=== PATIENT | male | born 1965 | race African-American/Black ===

== ENCOUNTER → 2017-04-09 | Outpatient (CLI) | payer BC, OTHER ==
[~2017-04-09] MED LIST: AUGMENTIN 875-1 EACH PO; BAYER BACK & B1 EACH PO; CIALIS5 MG PO; CLEOCIN HCL300 MG PO; COUMADIN 2 MG TA2 M1 PO; COUMADIN 5 MG TA5 M1; COUMADIN 5 MG TA5 M1 PO; DULCOLAX STOOL100 MG PO; FLONASE 0.05%50 MCG NASAL; HYDROCODON-ACE1 EAC7 PO; HYDROCODONE-AP1 EAC6 PO; IBUPROFEN 200200 M1; IBUPROFEN 200200 M1 PO; LIPITOR 20 MG T20 M1 PO; MOBIC15 MG PO; NAPROSYN500 MG PO; NORCO 5-325 TA1 EACH PO; OXYCODONE-ACET1 EAC2; PERCOCET 10-321 EACH PO; PERCOCET 5-3251 EACH PO
== END ==
LOC: CAT 04-08 12:52
DX: L03.221 Cellulitis of neck (principal)

== ENCOUNTER 2017-05-23 10:49 | Inpatient (IN) | payer BC, OTHER ==
[~2017-05-23] VITALS: Ht 182.9 cm; Wt 93.9 kg
[2017-05-23] VITALS (7 sets, daily range): BP systolic 116–187; BP diastolic 75–107
--- NOTE | ~2017-05-23 | H ---
[facility] [place] [address] HISTORY AND PHYSICAL Name: ARIANNE CALVILLO Room #: 453-P [facility] Mary Vail#: [id number] Admission: 05/23/17 Attend Phys: Elizabeth Batista MD Discharge: Date of : 65 Report #: [id number] THIS REPORT FOR: //name// CC: Elizabeth Batista Shelly Morrisbetina DATE OF SERVICE: 05/23/2017 REASON FOR PRESENTATION: Right-sided numbness. HISTORY OF PRESENT ILLNESS: This is a 52-year-old with past medical history of hypertension. He is also known to be an ex-smoker. He quit smoking 2 months ago. He is maintained on lisinopril and metoprolol. No known other risk factors for peripheral arterial disease, specifically no coronary artery disease and no carotid artery disease. He presented complaining of right-sided tingling that started since Wednesday. He reports that the right side of his upper extremity along with lower extremity has started to be numb on Wednesday. This did not go away. This morning he started to have some facial numbness, especially on the right lip, just like getting a shot for a dental procedure. No facial drooping. No diplopia, no double vision, no dizziness, no headache. He tells me that his blood pressure is under well control. No neck pain. No neck rigidity. No previous similar episodes. No history of head trauma. 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 He is not aware of any family history of hypercoagulable status. No family history of stroke, but his mom had a CABG surgery.He recently had a dental procedure and was given augmentin, he does not think that his lips numbness is related to that PAST MEDICAL HISTORY: 1. Hypertension. 2. Hyperlipidemia. PAST SURGICAL HISTORY: 1. Umbilical hernia repair. 2. Right hip replacement. ALLERGIES: No known drug allergies. MEDICATIONS: 1. Lisinopril 5 mg daily. 2. Metoprolol. 3. Famotidine. 4. Meclizine. 5. Atorvastatin. SOCIAL HISTORY: He quit smoking 2 months ago. 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 No drug or alcohol abuse. [facility] [address] [place] [address] HISTORY AND PHYSICAL Name: ARIANNE CALVILLO Room #: 453-P [facility] MYara#: [id number] Admission: 05/23/17 Attend Phys: Elizabeth Batista MD Discharge: Date of : 65 Report #: [id number] FAMILY HISTORY: His mom had CABG bypass surgery. REVIEW OF SYSTEMS: GENERAL: No fever or chills. CARDIOVASCULAR: No chest pain or palpitation. PULMONARY: No cough or hemoptysis. GASTROINTESTINAL: No nausea or vomiting. GENITOURINARY: No frequency, no urgency. MUSCULOSKELETAL: No back pain. No myalgia, no joint pain. NEUROLOGICAL: As per the history of present illness. PHYSICAL EXAMINATION: VITAL SIGNS: Temperature was 36.9, pulse was 61, blood pressure was 186/94. Respiratory rate was 17. HEAD AND NECK: No jugular venous distention, no bruit, no thyromegaly. CHEST: Clear to auscultation bilaterally. CARDIOVASCULAR: Regular with no rub detected. ABDOMEN: Soft, nontender, with no hepatosplenomegaly. EXTREMITIES: Lower extremities, no edema with intact peripheral pulses. NEUROLOGIC: Completely normal physical examination with symmetrical power and sensation, symmetrical reflexes. Intact cranial nerves. LABORATORY DATA: Laboratory values reviewed. All of his laboratory values are within normal, except that he had a blood sugar of 125. IMAGING DATA: His imaging including his CT reviewed. ASSESSMENT, IMPRESSION AND PLAN: Right-sided numbness. Hypertension. His symptoms are atypical for stroke; however, given his hypertensive urgency and high blood pressure on presentation, we will admit for observation. CT is negative for any acute neurological abnormalities. Stroke workup including lipid profile, MRI, [facility] of [facility] in the morning. Check TSH. Check folic acid and B12. Neurological consultation. [address] [address] HISTORY AND PHYSICAL Name: ARIANNE CALVILLO Room #: [address] [place] [address] M.R.#: [id number] Admission: 05/23/17 Attend Phys: Elizabeth Batista MD Discharge: Date of : 65 Report #: [id number] Blood pressure control. Check lipid profile in the morning. Further plans will be based on the MRI results. <ELECTRONICALLY SIGNED> By: Elizabeth Batista MD 05/24/17 0806 [id number] 1323 Elizabeth Batista MD /nt
--- NOTE | ~2017-05-23 | EKG ---
[place] [address] [place] [facility] [place] [address] ELECTROCARDIOGRAM REPORT Name: ARIANNE CALVILLO Room #: 453-P [facility] M.R.#: [id number] Admission: 05/23/17 Attend Phys: Elizabeth Batista MD Discharge: Date of : 65 Report #: [id number] THIS REPORT FOR: //name// [facility] ED Test Date: 2017-05-23 Test Time: 11:19:56 Pat Name: ARIANNE CALVILLO Department: Room: 453 Gender: M Addictions Counselor Assistant: JUMA : 1965 Requested By: Yanely Celestin Order Number: [id number] MD: Alessandro Chris Measurements Intervals [place] Rate: 55 P: 67 AL: 171 QRS: 62 QRSD: 82 T: 16 QT: 412 QTc: 394 Interpretive Statements Sinus rhythm Consider left ventricular hypertrophy Poor septal R-wave progression No previous ECG available for comparison Electronically Signed On 05-23-2017 13:39:11 CDT by Alessandro Chris [email or web address] <ELECTRONICALLY SIGNED> By: Alessandro Chris MD, [facility] 05/23/17 1339 1119 18 Alessandro Chris MD, FACC /EPI
--- NOTE | ~2017-05-23 | 2DMMODE ---
[facility] [address] [place] [address] 2 D/M-MODE ECHOCARDIOGRAM Name: ARIANNE CALVILLO Room #: 453-P ADM IN M.R.#: [id number] Admission: 05/23/17 Attend Phys: Elizabeth Batista, Discharge: Date of : 65 Date of Service: 05/24/17 1228 Report #: [id number] THIS REPORT FOR: //name// APPROVED REPORT Study performed: 05/24/2017 11:31:13 EXAM: Comprehensive 2D, Doppler, and color-flow Echocardiogram Patient Location: Echo lab Room #: [facility] Status: routine BSA: 2.16 HR: 48 bpm BP: 147/84 mmHg Rhythm: Bradycardia Other Information Study Quality: Good Indications CVA. Hx: HTN, HLP, tobacco abuse Echo Enhancing Agent Indication: Rule out Shunt Agent(s) / Amount(s) Used: Agitated Saline 6 cc 2D Dimensions RVDd: 38.32 mm LVEF(%): 58.64 (>50%) IVSd: 12.79 (7-11mm) LVOT Diam: 20.57 (18-24mm) LVDd: 50.79 mm PWd: 12.12 (7-11mm) Ascending Ao: 32.82 (22-36mm) LVDs: 34.96 (25-40mm) Aortic Root: 31.59 mm Reyes's LVEF: 58.64 % Volumes Left Atrial Volume (Systole) Single Plane 4CH: 53.25 mL Single Plane 2CH: 68.80 mL LA ESV Index: 32.00 mL/m2 Aortic Valve AoV Peak Romario.: 1.73 m/s AO Peak Gr.: 11.99 mmHg LVOT Max P.92 mmHg LVOT Max V: 1.41 m/s GIANA Vmax: 2.70 cm2 [facility] [employer] [place] [address] 2 D/M-MODE ECHOCARDIOGRAM Name: ARIANNE CALVILLO Room #: 453-P [facility] IN M.R.#: [id number] Admission: 05/23/17 Attend Phys: Elizabeth Batista, Discharge: Date of : 65 Date of Service: 05/24/17 1228 Report #: [id number] Mitral Valve E/A Ratio: 0.8 MV Decel. Time: 235.27 ms MV E Max Romario.: 0.59 m/s MV A Romario.: 0.72 m/s MV PHT: 68.23 ms IVRT: 129.18 ms Pulmonary Valve PV Peak Romario.: 0.95 m/s PV Peak Gr.: 3.61 mmHg Pulmonary Vein P Vein S: 0.52 m/s P Vein A: 0.25 m/s P Vein D: 0.40 m/s P Vein A Dur.: 96.9 msec P Vein S/D Ratio: 1.30 Tricuspid Valve TR Peak Romario.: 1.95 m/s RAP Estimate: 5.00 mmHg TR Peak Gr.: 15.14 mmHg PA Pressure: 20.00 mmHg Left Ventricle The left ventricle is normal size. There is normal LV segmental wall motion. Mild concentric left ventricular hypertrophy. Left ventricular systolic function is normal. LVEF is 55-60%. Mild diastolic dysfunction is present (impaired relaxation pattern). Right Ventricle The right ventricle is normal size. The right ventricular systolic function is normal. Atria The left atrium size is normal. Injection of bubbles documented no interatrial shunt. The right atrium size is normal. Aortic Valve Aortic valve is mildly calcified. No aortic regurgitation is present. There is no aortic valvular stenosis. Mitral Valve The mitral valve is normal in structure. Trace mitral regurgitation. No evidence of mitral valve stenosis. Tricuspid Valve [address] [address] 2 D/M-MODE ECHOCARDIOGRAM Name: ARIANNE CALVILLO Room #: 453-P ADM IN ..#: [id number] Admission: 05/23/17 Attend Phys: Elizabeth Batista, Discharge: Date of : 65 Date of Service: 05/24/17 1228 Report #: [id number] The tricuspid valve is normal in structure. Trace tricuspid regurgitation. Estimated PAP is 20mmHg. Pulmonic Valve The pulmonary valve is normal in structure. Trace pulmonic regurgitation. Great Vessels The aortic root is normal in size. The ascending aorta is normal in size. IVC is normal in size and collapses >50% with inspiration. Pericardium There is no pericardial effusion. <Conclusion> The left ventricle is normal size. LVEF is 55-60%. The right ventricle is normal size. Aortic valve is mildly calcified. The mitral valve is normal in structure. Trace mitral regurgitation. The tricuspid valve is normal in structure. Trace tricuspid regurgitation. Estimated PAP is 20mmHg. The pulmonary valve is normal in structure. Trace pulmonic regurgitation. There is no pericardial effusion. Injection of bubbles documented no interatrial shunt. <ELECTRONICALLY SIGNED> By: Demetrio Ferrell MD 05/24/17 1228 27 27 Demetrio Ferrell MD /INF
[2017-05-23 11:21] LABS: ABSOLUTE NEUTROPHILS 2.6 thou/uL (1.4-8.2); EOSINOPHILS 3.2 % (0.0-3.0); HEMATOCRIT 45.6 % (42.0-52.0); HEMOGLOBIN 15.9 gm/dL (14.0-18.0); MCH 29.3 pg (26.0-34.0); MCHC 34.9 g/dL (28.0-37.0); PLATELET COUNT 168 thou/uL (150-400); POLYS 48.8 % (36.0-66.0); RBC 5.43 mil/uL (4.50-6.00); RDW 14.4 % (10.5-14.5); WBC 5.3 thou/uL (4.0-11.0)
[2017-05-23 11:24] LABS: MANUAL DIFF NO
[2017-05-23 11:28] LABS: ANION GAP 3 mmol/L (7-16); BUN 17 mg/dL (7-18); CALCIUM 9.1 mg/dL (8.5-10.1); CHLORIDE 106 mmol/L (98-107); CO2 29 mmol/L (21-32); CREATININE 1.2 mg/dL (0.7-1.3); GLUCOSE 125 mg/dL (74-106); POTASSIUM 3.8 mmol/L (3.5-5.1); SODIUM 138 mmol/L (136-145)
[2017-05-23 11:37] LABS: TROPONIN-I < 0.04 ng/mL (<0.04-0.07)
[2017-05-23] MEDS ORDERED: LASIX 20 MG TAB20 MG PO (11:48)
[2017-05-23] MEDS ORDERED: LISINOPRIL5 MG PO (11:49)
[2017-05-23] MEDS ORDERED: TIMOLOL GL0.5 %/5 M1 INTRAOCULR (11:49)
[2017-05-23] MEDS ORDERED: TESSALON PERLE100 MG PO (11:49)
[2017-05-23] MEDS ORDERED: ZOLOFT25 MG PO (11:49)
[2017-05-23] MEDS ORDERED: XALATAN2.5 ML OPHTHALMIC (11:49)
[2017-05-23] MEDS ORDERED: LOPRESSOR50 PO (11:49)
[2017-05-23] MEDS ORDERED: DULCOLAX5 MG PO (11:50)
[2017-05-23] MEDS ORDERED: PEPCID20 MG PO (11:50)
[2017-05-23] MEDS ORDERED: ANTIVERT25 MG PO (11:50)
[2017-05-23] MEDS ORDERED: TYLENOL325 MG PO (11:50)
[2017-05-23] MEDS ORDERED: NAPROSYN500 M1 PO (11:52)
[2017-05-23] MEDS ORDERED: LISINOPRIL-HCT1 EAC1 PO (14:40)
[2017-05-23] MEDS ORDERED: AMOXICILLIN 50500 MG PO (14:42)
[2017-05-24 04:19] VITALS: BP 146/91
[2017-05-24 06:36] LABS: HEMATOCRIT 44.3 % (42.0-52.0); HEMOGLOBIN 14.8 gm/dL (14.0-18.0); MCH 28.6 pg (26.0-34.0); MCHC 33.5 g/dL (28.0-37.0); MCV 85.4 fL (80.0-100.0); RBC 5.19 mil/uL (4.50-6.00); RDW 14.6 % (10.5-14.5); WBC 5.1 thou/uL (4.0-11.0)
[2017-05-24 06:48] LABS: ALBUMIN 3.1 g/dL (3.4-5.0); ALKALINE PHOSPHATASE 79 U/L (46-116); ANION GAP 9 mmol/L (7-16); BUN 14 mg/dL (7-18); CALCIUM 8.4 mg/dL (8.5-10.1); CHLORIDE 103 mmol/L (98-107); CHOLESTEROL 279 mg/dL (<200); CO2 25 mmol/L (21-32); CREATININE 1.1 mg/dL (0.7-1.3); GLUCOSE 132 mg/dL (74-106); HDL CHOLESTEROL 26 mg/dL (>40); POTASSIUM 3.4 mmol/L (3.5-5.1); SGOT 11 U/L (15-37); SGPT 17 U/L (30-65); SODIUM 137 mmol/L (136-145); TC:HDL 10.7 Ratio (Not establshd); TOTAL BILIRUBIN 0.2 mg/dL (<0.1-1.0); TOTAL PROTEIN 6.6 g/dL (6.4-8.2); TRIGLYCERIDE 529 mg/dL (<150); VLDL 106 mg/dL (<40)
[2017-05-24 07:06] LABS: FOLIC ACID 12.3 ng/mL (8.6-58.9); TSH 0.974 uIU/mL (0.358-3.740)
[2017-05-24 07:14] VITALS: BP 147/84
[2017-05-24 16:30] VITALS: BP 139/71
[2017-05-24] MEDS ORDERED: ADULT LOW DOSE81 MG PO (18:37)
[2017-05-24] MEDS ORDERED: PRINIVIL20 MG PO (18:37)
[2017-05-24] MEDS ORDERED: LIPITOR 20 MG T20 M1 PO (18:37)
[2017-05-24 18:41] VITALS: BP 139/71
[2017-05-24 19:00] VITALS: BP 139/71
[2017-05-25 05:11] LABS: GLYCOHEMOGLOBIN (HGB A1C) 5.7 % (4.8-5.6)
== END 2017-05-24 19:01 | disposition home or self-care (01) | DRG 66 ==
LOC: ER 10:49 → EROBS 12:16 → 4W 12:16
PROVIDERS: Emergency Medicine; Hospitalist; Internal Medicine
DX: I63.9 Cerebral infarction, unspecified (principal); I10 Essential (primary) hypertension; E78.5 Hyperlipidemia, unspecified; Z96.641 Presence of right artificial hip joint; I16.0 Hypertensive urgency; Z79.899 Other long term (current) drug therapy; Z79.82 Long term (current) use of aspirin; Z83.3 Family history of diabetes mellitus; Z87.891 Personal history of nicotine dependence

== ENCOUNTER 2017-07-05 12:56 | Observation (INO) | payer BC, OTHER ==
[~2017-07-05] VITALS: Ht 182.9 cm; Wt 97.1 kg
[~2017-07-05 12:56] MED LIST changes: +ADULT LOW DOSE81 MG PO; +AMOXICILLIN 50500 MG PO; +ANTIVERT25 MG PO; +DULCOLAX5 MG PO; +LASIX 20 MG TAB20 MG PO; +LISINOPRIL-HCT1 EAC1 PO; +LISINOPRIL5 MG PO; +LOPRESSOR50 PO; +NAPROSYN500 M1 PO; +PEPCID20 MG PO; +PRINIVIL20 MG PO; +TESSALON PERLE100 MG PO; +TIMOLOL GL0.5 %/5 M1 INTRAOCULR; +TYLENOL325 MG PO; +XALATAN2.5 ML OPHTHALMIC; +ZOLOFT25 MG PO
[2017-07-05 13:03] VITALS: BP 171/111
[2017-07-05] MEDS ORDERED: ZETIA10 MG PO (15:15)
[2017-07-05 15:16] VITALS: BP 158/94
[2017-07-05 15:23] LABS: HEMATOCRIT 47.6 % (42.0-52.0); MCH 28.5 pg (26.0-34.0); MCHC 33.7 g/dL (28.0-37.0); MCV 84.5 fL (80.0-100.0); PLATELET COUNT 138 thou/uL (150-400); RBC 5.63 mil/uL (4.50-6.00); RDW 14.9 % (10.5-14.5)
[2017-07-05 15:24] LABS: MANUAL DIFF YES
[2017-07-05 15:29] LABS: CALCIUM 8.8 mg/dL (8.5-10.1); CREATININE 1.1 mg/dL (0.7-1.3)
[2017-07-05 15:37] LABS: APTT 27.1 Seconds (24.5-32.8)
[2017-07-05 15:47] LABS: TOTAL CELL COUNT 100
[2017-07-05 15:48] LABS: ANISOCYTOSIS 1+; POLYCHROMASIA OCCASIONAL
[2017-07-05 17:54] VITALS: BP 140/89
[2017-07-05 19:20] VITALS: BP 126/76
[2017-07-06 00:13] VITALS: BP 118/80
[2017-07-06 03:49] VITALS: BP 109/66
[2017-07-06 07:55] LABS: CHOLESTEROL 209 mg/dL (<200); HDL CHOLESTEROL 30 mg/dL (>40); TRIGLYCERIDE 437 mg/dL (<150); VLDL 87 mg/dL (<40)
[2017-07-06 08:21] VITALS: BP 136/74
[2017-07-06] MEDS ORDERED: ZETIA10 MG PO (09:03)
[2017-07-06] MEDS ORDERED: PLAVIX 75 MG TA75 M1 PO (10:22)
[2017-07-06 10:30] VITALS: BP 136/74
== END 2017-07-06 11:38 | disposition home or self-care (01) ==
LOC: ER 12:56 → EROBS 15:14 → 3W 17:59
PROVIDERS: Emergency Medicine; Psychiatry & Neurology Neurology
DX: R20.2 Paresthesia of skin (principal); I10 Essential (primary) hypertension; E78.5 Hyperlipidemia, unspecified; Z87.891 Personal history of nicotine dependence; Z86.73 Personal history of transient ischemic attack (TIA), and cerebral infarction without residual deficits

== ENCOUNTER 2017-11-14 22:15 | Emergency (ER) | payer BC, OTHER ==
[~2017-11-14] VITALS: Ht 182.9 cm; Wt 90.7 kg
[~2017-11-14 22:15] MED LIST changes: +PLAVIX 75 MG TA75 M1 PO; +ZETIA10 MG PO
[2017-11-14] MEDS ORDERED: MEDROL4 M1 PO (22:26)
[2017-11-14] MEDS ORDERED: HYDROCHLOROTH12.5 M1 PO (22:26)
[2017-11-14 22:32] LABS: URINE BILIRUBIN NEGATIVE (Negative); URINE BLOOD TRACE (Negative); URINE CLARITY CLEAR; URINE COLOR YELLOW; URINE GLUCOSE-RANDOM* NEGATIVE (Negative); URINE KETONES NEGATIVE (Negative); URINE LEUKOCYTES-REFLEX NEGATIVE (Negative); URINE NITRITE-REFLEX NEGATIVE (Negative); URINE PROTEIN (DIPSTICK) TRACE (Negative); URINE SPECIFIC GRAVITY 1.015 (1.005-1.035); URINE UROBILINOGEN 0.2 E.U./dl (0.2-1.0)
[2017-11-14 23:02] LABS: ABSOLUTE NEUTROPHILS 4.7 thou/uL (1.4-8.2); BASOPHILS 0.5 % (0.0-2.0); EOSINOPHILS 2.8 % (0.0-3.0); HEMATOCRIT 45.1 % (42.0-52.0); HEMOGLOBIN 15.6 gm/dL (14.0-18.0); LYMPHOCYTES 20.7 % (24.0-44.0); MCH 29.3 pg (26.0-34.0); MCHC 34.7 g/dL (28.0-37.0); MCV 84.6 fL (80.0-100.0); MONOCYTES 7.5 % (1.0-8.0); PLATELET COUNT 141 thou/uL (150-400); POLYS 68.5 % (36.0-66.0); RBC 5.33 mil/uL (4.50-6.00); RDW 14.5 % (10.5-14.5); WBC 6.9 thou/uL (4.0-11.0)
[2017-11-14 23:16] LABS: CALCIUM 7.9 mg/dL (8.5-10.1); POTASSIUM 3.8 mmol/L (3.5-5.1)
[2017-11-14 23:23] LABS: ALBUMIN 3.1 g/dL (3.4-5.0); TOTAL BILIRUBIN 0.2 mg/dL (<0.1-1.0); TOTAL PROTEIN 6.2 g/dL (6.4-8.2)
[2017-11-15] MEDS ORDERED: LIPITOR10 MG PO (01:08)
[2017-11-15] MEDS ORDERED: LISINOPRIL20 MG PO (01:10)
[2017-11-15] MEDS ORDERED: ZESTORETIC 20-1 EAC3 PO (01:10)
[2017-11-15] MEDS ORDERED: NORCO 5-325 TA1 EACH PO (02:02)
[2017-11-15] MEDS ORDERED: ZOFRAN ODT4 MG PO (02:02)
[2017-11-15] MEDS ORDERED: PROTONIX40 M1 PO (02:02)
[2017-11-15] MEDS ORDERED: SENNA-DOCUSATE1 EACH PO (02:02)
[2017-11-15 02:24] VITALS: BP 171/101
== END 2017-11-15 02:25 | disposition home or self-care (01) ==
LOC: ER 22:15
PROVIDERS: Emergency Medicine
DX: K85.90 Acute pancreatitis without necrosis or infection, unspecified (principal); K29.80 Duodenitis without bleeding; I10 Essential (primary) hypertension; F10.99 Alcohol use, unspecified with unspecified alcohol-induced disorder

== ENCOUNTER → 2020-12-03 | Outpatient (CLI) | payer BC, OTHER ==
[~2020-12-03] VITALS: Ht 182.9 cm; Wt 97.5 kg
[~2020-12-03] MED LIST changes: +ACETAMIN-CODE12.5 ML PO; +APAP650 PO; +ASA81BEC PO; +BACLOFEN 10MG T10 MG PO; +GABAPENTIN600 M1 PO; +HYDROCHLOROTH12.5 M1 PO; +LIPITOR10 MG PO; +LISINOPRIL20 MG PO; +LYRICA 50 MG50 MG PO; +MEDROL4 M1 PO; +NORVASC10 MG PO; +OXYBUTYNIN 5 MG5 M2 PO; +PERCOCET 7.5-31 EAC1 PO; +PROTONIX40 M1 PO; +SENNA PLUS TAB1 EACH PO; +SENNA-DOCUSATE1 EACH PO; +SERTRALINE HCL25 M1 PO; +TAMSULOSIN HCL0.4 MG PO; +TOPROL XL25 MG PO; +TRAZODONE HCL50 MG PO; +ZESTORETIC 20-1 EAC3 PO; +ZOFRAN ODT4 MG PO
[2020-12-03 09:47] VITALS: BP 118/83
--- NOTE | 2020-12-03 10:04 | NUR ---
Pain Clinic Assessment: 1. History of Osteoarthritis: HANDS LUMBAR AND CERVICAL SPINE History of Rheumatoid Arthritis: 2. Height: 6 ft. 0 in. 182.9 cm. Weight: 215.0 lb. oz. 97.524 kg. Patient's BMI: 29.2 3. Vital Signs: BP: 118/83 Pulse: 59 Resp: 14 Temp: 02 Sat: 97 ECG Mon: 4. Pain Intensity: 8 5. Fall Risk: Dizziness: N Needs help standing or walking: Y Fallen in the last 3 months: N Fall risk comments: 6. Patient on Blood Thinner: None 7. History of Hypertension: Y 8. Opioid Therapy greater than 6 weeks: N Opiate Contract Signed: 9. Risk Assessment Tool Provided: 0-low risk 10. Functional Assessment Tool: /70 11. Recreational Drug Use: Never Drug Type: Tobacco Use: Never Smoker Tobacco Type: Amount or Packs/day: How Many Years: Alcohol Use: No Frequency: Quant:
--- NOTE | 2020-12-04 09:22 | HPC ---
[facility] [place] [address] PAIN MANAGEMENT CONSULTATION Name: ARIANNE CALVILLO Room #: REG JIMJon Vail#: [id number] Admission: 12/03/20 Attend Phys: Patrick Motta DO Discharge: Date of : 65 Report #: [id number] THIS REPORT FOR: cc: Shelly Weiner MD, Michelle R. MD Johnson, James E. DO ~ DATE OF SERVICE: 12/03/2020 CHIEF COMPLAINT: Left-sided hemibody pain. HISTORY OF PRESENT ILLNESS: As you know, the patient is a 55-year-old male who suffered a cerebrovascular accident in 2012. This was diagnosed, but did not cause any residual deficits. Apparently, there was no noted source for the stroke. Unfortunately, the patient had a second stroke in 2019, leaving him with residual neuropathic symptoms involving the left hemibody. He has been trialing treatment options, but has not seen much in the way of benefit. He is currently taking gabapentin 900 mg b.i.d., which has just recently been escalated from 600 mg 3 times a day. He is also currently taking Lyrica 50 mg dose for which he was taking 1 tab b.i.d. and now is increased to 2 tabs b.i.d. Despite these changes, he has noted no benefit. He continues to experience pain for which he places pain anywhere from 8-10/10. It is generalized in nature, nondermatomal in distribution. He has been referred to our service to discuss treatment options for left hemibody pain secondary to cerebrovascular accident and residual deficits. The patient reports today his pain is steady and constant. Describes the pain as burning, shooting, aching, numbness, tingling, sharp and stabbing, places current pain score at 8/10, daily average at 8/10, worst pain has been is 10/10. The patient states pain is exacerbated with virtually every activity including movement. Pain is improved with lying down and the use of daily marijuana. He has been referred to our service to provide suggestions and treatment to address what appears to be post-cerebrovascular accident thalamic neuropathic pain. PAST MEDICAL HISTORY: 1. History of CVA x 2 with residual deficits. 2. Left hemibody pain. 3. Hypertension. 4. Dyslipidemia. PAST SURGICAL HISTORY: Noncontributory. SOCIAL HISTORY: The patient reports he is a nonsmoker, but does also report that he partakes marijuana use on a daily basis. He denies any other IV or illicit drug use. He denies any alcohol use. 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 He is accompanied by a caregiver today. [address] [address] PAIN MANAGEMENT CONSULTATION Name: CALVILLOARIANNE Room #: REG SAROJ Vail#: [id number] Admission: 12/03/20 Attend Phys: Patrick Motta DO Discharge: Date of : 65 Report #: [id number] REVIEW OF SYSTEMS: Positive for fatigue and weakness, frequent and recurrent headaches, frequent coughs, constipation, nocturia, numbness and tingling sensations involving the entire left side of his body, history of stroke with residual deficits, memory loss and confusion, depression, heat and cold intolerance. All other review of systems negative per 12-point review of systems other than those listed in history of present illness. Pain impact score rated at 67/70, severe near complete interference of daily activities secondary to pain. ALLERGIES: No known drug allergies. CURRENT MEDICATIONS: Oxybutynin 5 mg once a day, pregabalin 100 mg twice a day, Senokot-S 1 tab per day, tamsulosin 0.4 mg once a day, trazodone 50 mg p.o. at bedtime, Tylenol Extra Strength 650 mg b.i.d., aspirin 81 mg per day, baclofen 10 mg 3 times a day p.r.n., gabapentin 900 mg b.i.d., amlodipine 10 mg once a day, Zetia 10 mg once a day, metoprolol 25 mg once a day, lisinopril 20 mg once a day, atorvastatin 10 mg once a day. IMAGING: There is no imaging of the areas addressed on physical exam today. PQRS: The patient has known arthritic changes of the lumbar spine, cervical spine and hands. No rheumatoid arthritis. He is placing pain intensity today anywhere from 8-10/10. He is a fall risk, but has not had a fall in last 3 months. He utilizes mainly wheelchair. He is not on blood thinners, but is treated for hypertension. He is not on chronic opioids, has a low opioid addiction potential based on assessment tool assessment today. Pain impact is 67/70, severe near complete interference of daily activities. PHYSICAL EXAMINATION: VITAL SIGNS: Blood pressure 118/83, pulse is 59, respiratory rate 14 and unlabored. The patient is 97% on room air, height 6 feet tall, weight 215 pounds, BMI calculated 29.2. GENERAL: A well-developed, well-nourished, well-hydrated 55-year-old male, appears older than stated age. He is awake, alert and is oriented. He is placing current pain score at 8/10. HEENT: Normocephalic, atraumatic. Pupils appear round and responsive. He is wearing a mask in compliance with COVID-19 regulations. NEUROLOGIC: His speech appears normal for the patient. LUNGS: Clear, no wheeze, rhonchi, no rales. CARDIOVASCULAR: Regular. No appreciable gallop, rub. ABDOMEN: Soft. EXTREMITIES: Show no clubbing, no cyanosis. The patient has a bracing system on the left lower extremity. He is protecting his left upper extremity, but there does not appear to be any cyanosis. MUSCULOSKELETAL: Weakness is noted on the left upper extremity and the left lower extremity. This is consistent with residual deficits from his CVA. He [address] [address] PAIN MANAGEMENT CONSULTATION Name: RAJINDERARIANNE Room #: REG Jon Mckeon.#: [id number] Admission: 12/03/20 Attend Phys: Patrick Motta DO Discharge: Date of : 65 Report #: [id number] does display allodynia throughout the dermatomal distribution of the cervical left upper extremity and the left arm. This is noted to light touch. 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 3. Chronic intractable pain. PLAN: 1. Based on today's physical exam and history the patient has provided, the description the patient uses in regards to pain as well as location of symptoms, it would appear his symptoms are related to the cerebrovascular accident reported in 2019. The patient does correlate the symptoms back to that point. We have reviewed the patient's medication records that were provided to us today. It does appear that he has been treated conservatively and we recommended that conservative treatment to continue. We would have the following suggestions for treatment for the primary care to help direct treatment further. 2. We would recommend increasing gabapentin from the current 900 mg b.i.d. to 900 mg at noon and 1200 mg at night, starting today; then escalate in 3 days to 300 mg in the morning, 900 mg at noon and 1200 mg at night for 3 days; then 600 mg in the morning, 900 mg at noon and 1200 mg at night for 3 days; then 900 mg in the morning, 900 mg at noon and 1200 mg at night for 3 nights; then 1200 mg 3 times a day if tolerated. The patient can escalate the dose he has currently and can follow up with efficacy. I did provide this patient the information today, but also advised to follow up with his primary care tomorrow to discuss this further. As for the Lyrica, I would not make any changes in the Lyrica at this time. This is an unusual dosing of medication and the patient is unable to report whether or not there were some kind of side effects to gabapentin escalation and thus we will make the adjustments today. I would recommend continuing the Lyrica at current dose. 3. We are limited in what can be used for treatment in a patient such as this patient. I did offer that he might look into deep brain stimulation as a treatment option. There has been some anecdotal evidence that this has been effective for chronic pain. He would have to look into his primary care for referral to [facility] for deep brain stimulation conversation and other options for treatment from a neurosurgical/neurologic standpoint. 4. We discussed with the patient his use of marijuana. He appears to be having some effect with the use. I advised the patient that if he is on chronic marijuana that opioid medications would not be something that can be provided given that the Federal Government still considers marijuana illegal, even though it is illegal in the state. If the patient wishes to obtain a legal license for marijuana and wishes to smoke marijuana as a treatment course, he can certainly [facility] [address] [place] [address] PAIN MANAGEMENT CONSULTATION Name: ARIANNE CALVILLO Room #: REG SAROJ [place]#: [id number] Admission: 12/03/20 Attend Phys: Patrick Motta DO Discharge: Date of : 65 Report #: [id number] do so. There has been so anecdotal evidence that this is effective. 5. The patient and I did discuss that he received a significant amount of opioids while he was in the hospital after his stroke. He reports no efficacy with those medications and we would not recommend the use of opioid therapy in this patient's case given the lack of efficacy. 6. We wish to thank Shelly Weiner for the opportunity to see this patient in consultation. We are hopeful that he suggestions made in this evaluation will be beneficial in directing his care. We would be certainly available if you wish to contact us to discuss these therapies further. We will be releasing his care back to his treating physician with these suggestions but we will be available if you request to have the patient return to discuss other options. <ELECTRONICALLY SIGNED> By: Patrick Motta DO 12/04/20 0922 1114 38 Patrick Motta DO /nt
== END ==
LOC: PAIN 06:51
PROVIDERS: ATTEND Anesthesiology Pain Medicine
DX: G89.0 Central pain syndrome (principal); I69.398 Other sequelae of cerebral infarction; G89.29 Other chronic pain